=== PATIENT | male | born 1960 | race Caucasian/White ===

== ENCOUNTER 2021-10-01 08:41 | Outpatient (CLI) | payer OTHER, SELFPAY | END 2021-10-01 08:42 | disposition home or self-care (01) | DX: H90.41 Sensorineural hearing loss, unilateral, right ear, with unrestricted hearing on the contralateral side (principal); H90.72 Mixed conductive and sensorineural hearing loss, unilateral, left ear, with unrestricted hearing on the contralateral side | CPT/HCPCS: 92557; 92567 ==

== ENCOUNTER 2022-05-16 09:26 | Outpatient (CLI) | payer OTHER, SELFPAY | END 2022-05-16 09:27 | disposition home or self-care (01) | LOC: ANHBWCAUD 09:27 | DX: H90.6 Mixed conductive and sensorineural hearing loss, bilateral (principal) | CPT/HCPCS: 99199 ==

== ENCOUNTER 2022-06-03 10:48 | Outpatient (CLI) | payer OTHER, SELFPAY | END 2022-06-03 10:49 | disposition home or self-care (01) | LOC: ANHAUDASC 10:51 → ANHBWCAUD 10:53 | DX: H90.8 Mixed conductive and sensorineural hearing loss, unspecified (principal) | CPT/HCPCS: 99199 ==

== ENCOUNTER 2022-08-05 10:24 | Outpatient (CLI) | payer OTHER, SELFPAY | END 2022-08-05 10:25 | disposition home or self-care (01) | DX: H90.6 Mixed conductive and sensorineural hearing loss, bilateral (principal) | CPT/HCPCS: 92557; 92567 ==